=== PATIENT | male | born 1975 | race African-American/Black ===

== ENCOUNTER 2024-10-05 14:09 | Emergency (ER) | payer MEDICAID ==
[~2024-10-05] VITALS: Ht 185.4 cm; Wt 105.0 kg
[~2024-10-05 14:09] MED LIST: AMLO10TA80 PO; COR3 PO; KEPP500 PO; PHEN100C4 PO
[2024-10-05 14:11] VITALS: O2SAT 100
[2024-10-05] MEDS: PHENYTOIN SODIUM EXTENDED 100MG CAPSULE PO ONE (15:12)
[2024-10-05] MEDS: LEVETIRACETAM 500MG TABLET PO STA (15:12)
[2024-10-05 15:17] LABS: CHLORIDE 102 mEq/L (98-107); POTASSIUM 3.7 mEq/L (3.5-5.1); SODIUM 136 mEq/L (136-145)
[2024-10-05 15:18] LABS: CALCIUM 8.6 mg/dL (8.7-10.4); CARBON DIOXIDE 28 mEq/L (21-32)
[2024-10-05 15:19] LABS: BASOPHILS % 0.9 % (0.0-2.0); EOSINOPHILS % 3.4 % (0.0-5.0); HEMATOCRIT. 33.1 % (42.0-52.0); HEMOGLOBIN. 11.2 g/dL (14.0-18.0); LYMPHOCYTES % 24.2 % (20.0-50.0); MEAN CORPUSCULAR HEMOGLOBIN 32.8 pg (28.0-32.0); MEAN CORPUSCULAR HGB CONC 33.9 g/dL (31.0-37.0); MEAN CORPUSCULAR VOLUME 96.5 fL (80.0-94.0); MEAN PLATELET VOLUME 10.6 fl (7.4-10.4); MONOCYTES % 5.8 % (2.0-8.0); NEUTROPHILS % 65.7 % (40.0-76.0); PLATELET 159 x1000/uL (130-400); RED BLOOD CELL COUNT 3.42 mill/uL (4.7-6.1); RED CELL DISTRIBUTION WIDTH 13.7 % (11.6-14.6); WHITE BLOOD COUNT 7.4 x1000/uL (4.5-11.0)
[2024-10-05 15:23] LABS: CREATININE 0.8 mg/dL (0.6-1.3); GLUCOSE 96 mg/dL (70-105); UREA NITROGEN BLOOD 14 mg/dL (9-23)
[2024-10-05 16:15] VITALS: BP 156/89; PULSE 91; RESP 22; TEMP 36.9; O2SAT 99
[2024-10-05] MEDS ORDERED: PHEN100C4 MT (16:19)
[2024-10-05] MEDS ORDERED: LEVE1000 MT (16:19)
[2024-10-05 16:30] VITALS: TEMP 98.6
[2024-10-05] MEDS: ACETAMINOPHEN 325MG TABLET PO STA (16:30)
== END 2024-10-05 16:37 | disposition home or self-care (01) ==
LOC: ER 14:09
DX: G40.909 Epilepsy, unspecified, not intractable, without status epilepticus (principal); E11.9 Type 2 diabetes mellitus without complications; I10 Essential (primary) hypertension
CPT/HCPCS: 36415; 80048; 85025; 99284